=== PATIENT | female | born 1960 | race Two or more races ===

== ENCOUNTER 2017-10-31 07:20 | Day surgery (SDC) | payer OTHER ==
[2017-10-26 10:26] LABS: BASOPHILS % (AUTO) 1.1 % (0.0-2.0); EOSINOPHILS % (AUTO) 1.2 % (0.0-3.0); HEMATOCRIT 42.6 % (37.0-47.0); HEMOGLOBIN 14.1 G/DL (12.0-16.0); LYMPHOCYTES % (AUTO) 35.5 % (20.0-45.0); MEAN CORPUSCULAR VOLUME 92 FL (80-99); MONOCYTES % (AUTO) 5.5 % (1.0-10.0); NEUTROPHILS % (AUTO) 56.8 % (45.0-75.0); PLATELET COUNT 293 K/UL (150-450); RED BLOOD COUNT 4.62 M/UL (4.20-5.40); RED CELL DISTRIBUTION WIDTH 12.3 % (11.6-14.8); WHITE BLOOD COUNT 7.7 K/UL (4.8-10.8)
[2017-10-26 10:54] LABS: ANION GAP 6 mmol/L (5-15); BLOOD UREA NITROGEN 14 mg/dL (7-18); CALCIUM 9.3 MG/DL (8.5-10.1); CARBON DIOXIDE 31 MMOL/L (21-32); CHLORIDE 104 MMOL/L (98-107); CREATININE 0.6 MG/DL (0.55-1.30); SODIUM 141 MMOL/L (136-145)
--- NOTE | 2017-10-26 12:17 | Diagnostic Imaging Report ---
Indication: Cough Technique: XRAY Chest 2v Comparison: None Findings: Right size within normal limits. There is no focal airspace consolidation, pleural effusion or pneumothorax. There mild degenerative changes of the spine. No acute osseous abnormality is seen. Surgical clips noted in the right upper quadrant, likely prior cholecystectomy. Impression: No radiographic evidence of acute cardiopulmonary disease.
--- NOTE | 2017-10-26 14:44 | Cardiology Report ---
APPROVED REPORT EKG Measurement Heart [id number] Normal sinus rhythm Normal ECG
[~2017-10-31] VITALS: Ht 154.9 cm; Wt 72.6 kg
[2017-10-31] VITALS (11 sets, daily range): BP systolic 108–128; BP diastolic 56–74
[~2017-10-31 07:20] MED LIST: ceFAZolin sod 1 GM in NS 55 ML IVPB ONE
--- NOTE | 2017-10-31 07:44 | Pre-Procedure Note/Attestation ---
Pre-Procedure Note/Attestation Complete Prior to Procedure Planned Procedure: not applicable Procedure Narrative: cystocele repair vaginal sling cystoscopy Indications for Procedure Pre-Operative Diagnosis: stress incontinence vaginal prolapse Attestation I attest that I discussed the nature of the procedure; its benefits; risks and complications; and alternatives (and the risks and benefits of such alternatives ), prior to the procedure, with the patient (or the patient's legal medical detail representative). I attest that, if there was a reasonable possibility of needing a blood transfusion, the patient (or the patient's legal medical detail representative) was given the [facility] standardized written summary, pursuant to the Mauricio Zeina Blood Safety Act ([place] Health and Safety Code # 1645, as amended). I attest that I re-evaluated the patient just prior to the surgery and that there has been no change in the patient's H&P, except as documented below: Christiano Gambino MD Oct 31, 2017 07:44
[2017-10-31] MEDS ORDERED: ZOLPIDEM TARTRAT5 MG ORAL (08:01)
[2017-10-31] MEDS ORDERED: BUSPIRONE HCL5 M1 ORAL (08:01)
[2017-10-31] MEDS ORDERED: VENLAFAXINE H37.5 M1 ORAL (08:01)
--- NOTE | 2017-10-31 08:29 | Anethesia Preoperative Eval ---
Anesthesia Pre-op PMH/ROS General Date of Evaluation: Oct 31, 2017 Anesthesiologist: Farrukh ASA Score: ASA 2 Mallampati Score Class I : Soft palate, uvula, fauces, pillars visible Class II: Soft palate, uvula, fauces visible Class III: Soft palate, base of uvula visible Class IV: Only hard plate visible Mallampati Classification: Class II Surgeon: Immanuel Diagnosis: Incontinence Surgical Procedure: Cystocele, vaginal sling Anesthesia History: none Family History: no anesthesia problems Allergies: Coded Allergies: No Known Allergies (Unverified , 10/30/17) Medications: see eMAR Past Medical History Cardiovascular: Denies: HTN, CAD, VA, valve dz, arrhythmia, other Pulmonary: Denies: asthma, COPD, BRYON, other Gastrointestinal/Genitourinary: Denies: GERD, CRI, ESRD, other Neurologic/Psychiatric: Reports: depression/anxiety, Denies: dementia, CVA, TIA, other Endocrine: Denies: DM, hypothyroidism, steroids, other HEENT: Denies: cataract (L), cataract (R), glaucoma, [place] (L), [employer] [place] (R), other Hematology/Immune: Denies: anemia, DVT, bleeding disorder, other Musculoskeletal/Integumentary: Denies: OA, RA, DJD, DDD, edema, other PSxH Narrative: lap yael, repair gastric ulcer, right CTR Anesthesia Pre-op Phys. Exam Physician Exam Last Vital Signs Date Time Temp Pulse Resp B/P (MAP) Pulse Ox O2 Delivery O2 Flow Rate FiO2 10/31/17 07:57 97.9 60 18 115/66 98 Room Air Constitutional: NAD Cardiovascular: RRR Respiratory: CTA Airway Exam Mallampati Score: Class II MO: full ROM: full Teeth: intact Anesthesia Pre-op A/P Labs see chart Studies Pre-op Studies: EKG - sr Risk Assessment & Plan Assessment: ASA II Plan: GA Status Change Before Surgery: No Pre-Antibiotics Drug: JEANETH MARIE M.D. Oct 31, 2017 08:29
[2017-10-31] MEDS ORDERED: fentaNYL 100 mcg/2 mL IV ONE (09:00)
[2017-10-31] MEDS ORDERED: NS Irrig 1000ml ONE (09:00)
[2017-10-31] MEDS ORDERED: Midazolam 2mg/2ml Inj ONE (09:00)
[2017-10-31] MEDS ORDERED: LR 1000ml ONE (09:00)
[2017-10-31] MEDS ORDERED: Ketorolac 30mg Inj ONE (09:00)
[2017-10-31] MEDS ORDERED: Sterile Water Irrig 1000ml IRRIG ONE (09:00)
[2017-10-31] MEDS ORDERED: Sterile Water For Irrig 2000ml IRRIG ONE (09:00)
[2017-10-31] MEDS ORDERED: Propofol 200mg/20ml IV ONE (09:00)
[2017-10-31] MEDS ORDERED: Lidocaine 1% MPF 10mg/ml 5ml ONE (09:00)
[2017-10-31] MEDS ORDERED: EPINEPHrine 1mg/1ml Amp ONE (09:13)
[2017-10-31] MEDS ORDERED: Surgicel 4in x 8in TOPIC ONE (09:13)
[2017-10-31] MEDS ORDERED: Bupivacaine 0.25% Inj 30ml INJ ONE (09:13)
[2017-10-31] MEDS ORDERED: Bacitracin 50000 Units Vial ONE (09:13)
[2017-10-31] MEDS ORDERED: Lidocaine 1% 10mg/ml/EPI 0.01mg/ml 50ml INJ ONE (09:13)
[2017-10-31] MEDS ORDERED: NeoSporin Gu Irrig 1ml Amp IRRIG ONE (09:13)
[2017-10-31] MEDS ORDERED: Vancomycin 1gm inj IVPB ONE (09:15)
[2017-10-31] MEDS ORDERED: Sulfanilamide 15% Cream - 78gm VAGIN ONE (09:30)
[2017-10-31] MEDS ORDERED: ProvayBlue 5mg/ml 10ml amp INJ ONE (09:30)
[2017-10-31] MEDS ORDERED: LR 1000ml 1,000 ML IVLG SCH (09:41)
--- NOTE | 2017-10-31 09:41 | Immediate Post-Op Evaluation ---
Immediate Post-Op Evalulation Immediate Post-Op Evalulation Procedure: Cystocele, vaginal sling Date of Evaluation: Oct 31, 2017 Time of Evaluation: 10:27 IV Fluids: 1L Blood Products: 0 Estimated Blood Loss: min Urinary Output: 0 Blood Pressure Systolic: 108 Blood Pressure Diastolic: 56 Pulse Rate: 62 Respiratory Rate: 17 O2 Sat by Pulse Oximetry: 100 Temperature (Fahrenheit): 97.4 Pain Score (1-10): 0 Nausea: No Vomiting: No Complications 0 Patient Status: awake, reacts, patent, none Hydration Status: adequate Drug: Ancef 2g Given Within 1 Hr of Incision: Yes Time Given: 09:30 JEANETH VALLADARES M.D. Oct 31, 2017 09:41
--- NOTE | 2017-10-31 09:41 | 48 Hour Post Anesthesia Eval ---
Post Anesthesia Evaluation Procedure: Cystocele, vaginal sling Date of Evaluation: Oct 31, 2017 Airway: patent Nausea: No Vomiting: No Pain Intensity: 0 Hydration Status: adequate Cardiopulmonary Status: at baseline Mental Status/LOC: patient returned to baseline Post-Anesthesia Complications: 0 Follow-up care needed: ready to discharge JEANETH VALLADARES M.D. Oct 31, 2017 09:41
[2017-10-31] MEDS ORDERED: DiphenhydrAMINE 50mg/ml Inj IVP PRN (09:45)
[2017-10-31] MEDS ORDERED: Midazolam 2mg/2ml Inj IVP PRN (09:45)
[2017-10-31] MEDS ORDERED: LORazepam Inj 2mg/ml 1ml IV PRN (09:45)
[2017-10-31] MEDS ORDERED: Hydromorphone 0.5mg/0.5ml inj IVP PRN (09:45)
[2017-10-31] MEDS ORDERED: fentaNYL 100 mcg/2 mL IV PRN (09:45)
--- NOTE | 2017-10-31 10:13 | Brief Operative Note ---
Immediate Post Operative Note Operative Note Pre-op Diagnosis: stress incontinence vaginal prolapse Procedure: cystocele repair vaginal sling cystocelel repair Post-op Diagnosis: same Post-op Diagnosis: same as pre-op Surgeon: jermaine gambino Anesthesia: general Specimen: none Complications: none Condition: stable Fluids: 500 Estimated Blood Loss: minimal Implant(s) used?: No Christiano Gambino MD Oct 31, 2017 10:13
[2017-10-31] MEDS ORDERED: HYDROmorphone 1mg/ml Carpuject SUBQ PRN (16:01)
[2017-10-31] MEDS ORDERED: D5 1/2NS 1,000 ML IV SCH (16:01)
[2017-10-31] MEDS ORDERED: Norco 5mg/325mg tab ORAL PRN (16:01)
[2017-10-31] MEDS ORDERED: Tylenol #3 tab (300mg/30mg) ORAL PRN (16:01)
--- NOTE | 2017-11-01 16:45 | Operative Note - Dictated ---
DATE OF OPERATION: 10/31/2017 PREOPERATIVE DIAGNOSES: Cystocele and stress incontinence. POSTOPERATIVE DIAGNOSES: Cystocele and stress incontinence. OPERATIONS: Transvaginal cystocele repair, vaginal wall sling, and cystoscopy. OPERATED BY: Christiano Gambnio M.D. ANESTHESIA: General. FINDINGS: Prolapsed vagina and open urethra. INDICATIONS FOR SURGERY: The patient had stress incontinence and unresponsive to medications. Treatment options were explained to her at great length including all potential complications. She signed the consent, brought to the operative room, placed in lithotomy position, and prepped and draped in standard fashion. Under general anesthesia, a transverse incision in the midline was made and bladder was from the vagina. A sling was placed in the midurethra in a non-tension fashion. After that, the pubocervical muscles were approximated with interrupted 2-0 Vicryl sutures. Vagina was trimmed and closed. Cystoscopy was normal . The patient tolerated the procedure well. Sponge count and instrument count was correct x2. Christiano Gambino M.D. DR: WADE JOB#: [id number] CC:
== END 2017-10-31 12:30 | disposition home or self-care (01) ==
LOC: SUR 07:20
DX: N81.10 Cystocele, unspecified (principal); N39.3 Stress incontinence (female) (male); F32.9 Major depressive disorder, single episode, unspecified; F41.9 Anxiety disorder, unspecified; Z90.49 Acquired absence of other specified parts of digestive tract
CPT/HCPCS: 36415; 57240; 57267; 71046; 80048; 85025; 85610; 85730; 93005; C1771; J0690; J1885; J2250; J2704; J3010; J7120; 94003; 94150